=== PATIENT | male | born 1945 | race Caucasian/White ===

== ENCOUNTER 2017-01-21 09:33 | Emergency (ER) | payer MEDICARE, OTHER ==
[2017-01-21 09:42] VITALS: TEMP 96.8
--- NOTE | 2017-01-21 09:51 | ED.PDOC ---
History of Present Illness - General Chief Complaint: Neuro Symptoms/Deficits Stated Complaint: LEFT HAND NUMBNESS Time Seen by Provider: 01/21/17 09:45 Source: patient Exam Limitations: no limitations - History of Present Illness Initial Comments: Feliberto Arias 70 y/o male stated that he had numbness left hand on waking up this am denies weakness,dysarthria,blurry vision .Stated mostly ulnar side left hand. Timing/Duration: 4-6 hours Severity: moderate Improving Factors: nothing Worsening Factors: nothing Associated Symptoms: denies symptoms Allergies/Adverse Reactions: Allergies Ciprofloxacin [From Cipro] Allergy (Verified 01/21/17 10:10) Review of Systems - Review of Systems Constitutional: States: no symptoms reported EENTM: States: no symptoms reported Respiratory: States: no symptoms reported Cardiology: States: no symptoms reported Gastrointestinal/Abdominal: States: no symptoms reported Genitourinary: States: no symptoms reported Musculoskeletal: States: no symptoms reported Skin: States: no symptoms reported Neurological: States: see HPI Past Medical History (General) - Patient Medical History Hx Diabetes: Yes Surgical History: other - both shoulders ,c- spine,bilateral CTS, - Social History Hx Tobacco Use: No Hx Alcohol Use: No Hx Substance Use: No - Activities of Daily Living Patient Lives Alone: No - family Grooming Ability: Independent Eating (Feeding) Ability: Independent Toileting Ability: Independent Family Medical History - Family History Mother Family History: Unknown Hx Family Hypertension: Yes - parents Hx Family Stroke: Yes - TIA-parents Hx Cardiac Disease: Yes - parents Physical Exam - Physical Exam General Appearance: Alert, No apparent distress, Other - speech fluent Eye Exam: bilateral normal ENT Exam: normal ENT inspection, hearing grossly normal, pharynx normal Neck: non-tender, full range of motion, supple Respiratory: chest non-tender, lungs clear Cardiovascular/Chest: normal peripheral pulses, regular rate, rhythm, no murmur Peripheral Pulses: radial,right: 1+, radial,left: 1+ Gastrointestinal/Abdominal: normal bowel sounds, non tender, soft, no organomegaly Back Exam: normal inspection, no CVA tenderness Extremities Exam: non-tender, normal range of motion 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: normal hearing, normal speech, PERRL Coordination/Gait: normal gait, negative Romberg's sign Motor/Sensory: no motor deficit, no sensory deficit, no pronator drift Skin Exam: normal color, warm/dry Progress - Progress Progress: 01/21/17 10:49 Vital Signs - 8 hr 01/21/17 01/21/17 09:34 10:22 Temperature 96.8 F L Pulse Rate [ 85 74 PULSE OX] Respiratory 20 20 Rate Blood Pressure 133/92 112/77 [RIGHT BRACHIAL ] O2 Sat by Pulse 97 97 Oximetry - Results/Orders Results/Orders: Laboratory Tests 01/21/17 01/21/17 10:15 10:15 WBC 6.1 RBC 5.93 Hgb 17.4 Hct 52.1 H MCV 87.8 MCH 29.4 MCHC 33.5 RDW 15.1 H Plt Count 200 MPV 7.4 Absolute Neuts (auto) 3.20 Absolute Lymphs (auto) 2.30 Absolute Monos (auto) 0.50 Absolute Eos (auto) 0.10 Absolute Basos (auto) 0.00 Neutrophils % 52.5 Lymphocytes % 37.3 Monocytes % 7.7 Eosinophils % 2.1 Basophils % 0.4 Sodium 135 Potassium 4.4 Chloride 102 Carbon Dioxide 25 Anion Gap 12.4 BUN 12 Creatinine 1.00 BUN/Creatinine Ratio 12.0 Random Glucose 104 Serum Osmolality 270.2 L Calcium 8.9 - EKG/XRAY/CT EKG: Sinus, no ST T wave changes Comments: heart rate-82;occ pvc XRAY: chest - copd changes Departure - Departure Clinical Impression: Numbness and tingling in left hand, Neuropathy of left ulnar nerve at wrist Time of Disposition: 10:51 Disposition: Discharge to Home or Self Care Condition: Fair Departure Forms: ED Discharge - Pt. Copy, Patient Portal Self Enrollment Instructions: Peripheral Neuropathy, Carpal Tunnel Syndrome, Carpal Tunnel Release Additional Instructions[facility];Return to emergency room as needed;Need to wear carpal tunnel wrist brace [facility]
--- NOTE | 2017-01-21 10:10 | RAD ---
EXAM DESCRIPTION: XR CHEST 2 VIEWS CLINICAL HISTORY: Pleural effusion COMPARISON: None TECHNIQUE: PA/lateral FINDINGS: Normal heart size. Mildly tortuous aorta. Hyperinflation consistent with COPD with interstitial scarring in the right lung base. No pulmonary edema, alveolar consolidation or pleural effusion No acute bony abnormality IMPRESSION: Minimal interstitial scarring in the right lung base No pleural effusion Electronically signed by: Marcos Browning MD 01/21/2017 10:08 AM CDT
[2017-01-21 11:02] VITALS: BP 123/77; O2SAT 98
== END 2017-01-21 11:02 | disposition home or self-care (01) ==
LOC: MERGE 09:33 → EDBD 09:33 → ER 09:33
DX: G56.22 Lesion of ulnar nerve, left upper limb (principal); E11.9 Type 2 diabetes mellitus without complications

== ENCOUNTER → 2018-12-08 | Outpatient (CLI) | payer MEDICARE | LOC: BFHOS 17:09 | PROVIDERS: ATTEND General Practice | DX: R30.0 Dysuria (principal); R35.0 Frequency of micturition ==

== ENCOUNTER 2019-02-10 22:16 | Emergency (ER) | payer MEDICARE, OTHER ==
[2019-02-10] MEDS ORDERED: ASPIRIN (CHEWABLE) 81 MG TAB PO ONE (22:35)
[2019-02-10] MEDS ORDERED: NITROGLYCERIN 0.4 MG 25 EA TAB SL ONE (22:35)
[2019-02-10] MEDS ORDERED: DEXAMETHASONE INJ 10 MG/ML VIAL IV ONE (22:36)
[2019-02-10] MEDS ORDERED: MORPHINE SULFATE INJ 10 MG/ML VIAL IV ONE (22:38)
[2019-02-10 22:40] VITALS: TEMP 100.4
[2019-02-10] MEDS ORDERED: TENECTEPLASE 50 MG VIAL IV ONE (22:45)
[2019-02-10] MEDS ORDERED: TENECTEPLASE 50 MG VIAL ONE (22:47)
--- NOTE | 2019-02-10 22:48 | ED.PDOC ---
History of Present Illness - General Chief Complaint: Chest Pain/CA Stated Complaint: chest pain Time Seen by Provider: 02/10/19 22:24 - History of Present Illness Initial Comments: 73 yo M PMH HL DM COPD presents to ED c/o retrosternal chest pain actively in department and is diaphoretic, chest pain began 4pm today. Denies fever chills nausea vomiting diarrhea is sob and diaphoretic hurts worse on breathing in no change in diet rest bowel or bladder. Denies drinking or smoking admits FH HTN DM has PMD for follow up. Uncomfortable in ED. Allergies/Adverse Reactions: Allergies Ciprofloxacin [From Cipro] Allergy (Verified 01/21/17 10:10) Review of Systems - Review of Systems Constitutional: States: see HPI EENTM: States: see HPI Respiratory: States: short of breath Cardiology: States: chest pain Gastrointestinal/Abdominal: States: no symptoms reported Genitourinary: States: no symptoms reported Musculoskeletal: States: no symptoms reported Skin: States: see HPI Neurological: States: no symptoms reported Endocrine: States: no symptoms reported All other Systems: Reviewed and Negative Past Medical History (General) - Patient Medical History Hx of COPD: Yes Hx Cardiac Disorders: Yes Hx Diabetes: Yes - Vaccination History Immunizations Up to Date: Yes - Social History Hx Tobacco Use: No Hx Alcohol Use: No Hx Substance Use: No Family Medical History - Family History Mother Family History: Unknown Hx Family Hypertension: Yes - parents Hx Family Stroke: Yes - TIA-parents Hx Cardiac Disease: Yes - parents Physical Exam - Physical Exam General Appearance: Ill Appearing, Other - diaphoretic Eyes, Ears, Nose, Throat Exam: normal ENT inspection Neck: full range of motion Respiratory: rales, inspiration Cardiovascular/Chest: tachycardia Gastrointestinal/Abdominal: non tender, soft Extremity: normal range of motion Neurologic: no motor/sensory deficits Skin Exam: diaphoresis Progress - Progress Progress: 02/10/19 22:50 A/P-STEMI 1.iv cbc cmp trop asa morphone oxygen nitro telemetry pulse ox called Dr. Fonseca of Cardiology EKG CXR ekg reads STEMI with ST elevation in anteroseptal leads heparin tnkase transfer - Results/Orders Results/Orders: EKG OLD 01/21/17 NSR occasional PVCs EKG #1 10:27pm sinus tachycardia concern for elevation of ST Segments anteroseptal leads EKG#2 reads acute CA, ST elevation anteroseptal leads Departure - Departure Clinical Impression: STEMI (ST elevation myocardial infarction) Qualifiers: Involved coronary artery: unspecified coronary artery Qualified Code(s): I21.3 - ST elevation (STEMI) myocardial infarction of unspecified site Chest pain Qualifiers: Chest pain type: unspecified Qualified Code(s): R07.9 - Chest pain, unspecified Time of Disposition: 22:55 Disposition: Transfer to Hospital Condition: Poor Departure Forms: ED Discharge - Pt. Copy, Patient Portal Self Enrollment Instructions: DI for Chest Pain Referrals: Elvin López MD [Primary Care Provider] - 1-2 Weeks Transfer to Outside Facility - Transfer Information Accepting Provider:: [id number] Accepting Facility: [facility] Reason for Transfer: [employer]
[2019-02-10] MEDS ORDERED: HEPARIN SODIUM (PORCINE) 5,000 U/ML VIAL ONE (22:55)
[2019-02-10] MEDS ORDERED: HEPARIN PREMIX 500 ML ONE (22:55)
[2019-02-10] MEDS ORDERED: HEPARIN SODIUM (PORCINE) 5,000 U/ML VIAL IV ONE (23:00)
--- NOTE | 2019-02-10 23:00 | RAD ---
CLINICAL HISTORY: pain COMPARISON: None. TECHNIQUE: XR CHEST 1 VIEW 02/10/2019 10:34 PM CDT FINDINGS: Cardiac silhouette is normal in size. There is residual airspace disease. There is no pleural effusion. There is no pneumothorax. There are no acute osseous findings. IMPRESSION: Patchy bibasilar pneumonia. Electronically signed by: Buck Jacome MD 02/10/2019 10:59 PM CDT
[2019-02-10] MEDS ORDERED: HEPARIN PREMIX 25,000 UNITS in PREMIX BAG 1 BAG IVS ONE (23:02)
[2019-02-10] MEDS ORDERED: SODIUM CHLORIDE 0.9% 1000ML 1,000 ML ONE (23:09)
[2019-02-10 23:25] VITALS: BP 126/74
[2019-02-11 03:26] VITALS: O2SAT 96
== END 2019-02-10 23:20 | disposition short-term general hospital (02) ==
LOC: ER 22:16
DX: I21.3 ST elevation (STEMI) myocardial infarction of unspecified site (principal); R00.0 Tachycardia, unspecified; I49.3 Ventricular premature depolarization; E11.9 Type 2 diabetes mellitus without complications; J44.9 Chronic obstructive pulmonary disease, unspecified; Z88.1 Allergy status to other antibiotic agents
CPT/HCPCS: 36415; 71045; 80053; 83880; 84484; 85025; 93005; J1100; J1644; J2270; J3101; J7030